=== PATIENT | male | born 1965 | race Caucasian/White ===

== ENCOUNTER 2017-12-27 02:21 | Observation (INO) | payer MEDICAID ==
[~2017-12-27] VITALS: Ht 177.8 cm; Wt 70.2 kg
[2017-12-27 02:59] LABS: BASOPHILS # (AUTO) 0.03 x10^3/uL (0-0.1); BASOPHILS % (AUTO) 0 % (0-1); EOSINOPHILS # (AUTO) 0.22 x10^3/uL (0-0.4); EOSINOPHILS % (AUTO) 4 % (1-7); LYMPHOCYTES # (AUTO) 1.44 x10^3/uL (1-3.4); LYMPHOCYTES % (AUTO) 24 % (22-44); MD NO; MEAN CORPUSCULAR HEMOGLOBIN 30.8 pg (27.5-34.5); MEAN CORPUSCULAR HGB CONC 34.1 g/dL (33.2-36.2); MEAN CORPUSCULAR VOLUME 90.3 fL (81-97); MEAN PLATELET VOLUME 8.7 fL (7.4-10.4); MONOCYTES # (AUTO) 0.67 x10^3/uL (0.2-0.8); MONOCYTES % (AUTO) 11 % (2-9); NEUTROPHILS # (AUTO) 3.61 x10^3/uL (1.8-6.8); NEUTROPHILS % (AUTO) 61 % (42-75); PLATELET COUNT 142 x10^3/uL (130-400); RED BLOOD COUNT 4.21 x10^6/uL (4.38-5.82); RED CELL DISTRIBUTION WIDTH 12.8 % (9.4-14.8)
[2017-12-27 03:10] LABS: ALANINE AMINOTRANSFERASE 43 U/L (12-78); ALBUMIN 3.7 g/dL (3.4-5.0); ANION GAP 3 mmol/L (5-15); CALCIUM 8.5 mg/dL (8.5-10.1); CHLORIDE 109 mmol/L (98-107); CREATININE 0.97 mg/dL (0.7-1.3); SALICYLATE LEVEL 2.7 mg/dL (2.8-20.0)
[2017-12-27 03:12] LABS: ALKALINE PHOSPHATASE 76 U/L (45-117); BILIRUBIN,TOTAL 0.4 mg/dL (0.2-1.0); TOTAL PROTEIN 7.2 g/dL (6.4-8.2)
[2017-12-27 03:13] LABS: ACETAMINOPHEN < 2 mcg/mL (10-30)
[2017-12-27 03:23] LABS: AMPHETAMINE SCREEN, URINE Negative (Negative); BARBITURATE SCREEN, URINE Negative (Negative); BENZODIAZEPINE SCREEN, URINE Negative (Negative); CANNABINOID SCREEN, URINE Positive (Negative); COCAINE SCREEN, URINE Negative (Negative); METHADONE SCREEN, URINE Negative (Negative); OPIATE SCREEN, URINE Negative (Negative)
[2017-12-27] MEDS ORDERED: ONDANSETRON ODT 4 MG PO PRN (12:00)
[2017-12-27 12:10] LABS: FREE T4 (FREE THYROXINE) 0.96 ng/dL (0.76-1.46); THYROID STIMULATING HORMONE 2.19 mIU/L (0.358-3.740)
[2017-12-27 12:31] VITALS: BP 117/83
[2017-12-27] MEDS: LORazepam 1MG TABLET PO PRN ×2 (13:20→19:47)
[2017-12-27] MEDS ORDERED: BUPR300T49 PO (14:20)
[2017-12-27] MEDS ORDERED: HALO5TAB5 PO (14:21)
[2017-12-27 19:56] VITALS: BP 105/71
[2017-12-28 05:40] LABS: BASOPHILS # (AUTO) 0.02 x10^3/uL (0-0.1); BASOPHILS % (AUTO) 0 % (0-1); EOSINOPHILS # (AUTO) 0.19 x10^3/uL (0-0.4); EOSINOPHILS % (AUTO) 4 % (1-7); LYMPHOCYTES # (AUTO) 1.44 x10^3/uL (1-3.4); LYMPHOCYTES % (AUTO) 29 % (22-44); MD NO; MEAN CORPUSCULAR HEMOGLOBIN 30.7 pg (27.5-34.5); MEAN CORPUSCULAR HGB CONC 33.7 g/dL (33.2-36.2); MEAN CORPUSCULAR VOLUME 91.1 fL (81-97); MEAN PLATELET VOLUME 8.7 fL (7.4-10.4); MONOCYTES # (AUTO) 0.49 x10^3/uL (0.2-0.8); MONOCYTES % (AUTO) 10 % (2-9); NEUTROPHILS # (AUTO) 2.82 x10^3/uL (1.8-6.8); NEUTROPHILS % (AUTO) 57 % (42-75); PLATELET COUNT 128 x10^3/uL (130-400); RED BLOOD COUNT 4.11 x10^6/uL (4.38-5.82); RED CELL DISTRIBUTION WIDTH 13.2 % (9.4-14.8)
[2017-12-28 05:48] LABS: CHLORIDE 110 mmol/L (98-107)
[2017-12-28 05:55] LABS: ALANINE AMINOTRANSFERASE 36 U/L (12-78); ALBUMIN 3.3 g/dL (3.4-5.0); ALKALINE PHOSPHATASE 71 U/L (45-117); ANION GAP 6 mmol/L (5-15); BILIRUBIN,TOTAL 0.3 mg/dL (0.2-1.0); CALCIUM 8.1 mg/dL (8.5-10.1); CREATININE 0.83 mg/dL (0.7-1.3); TOTAL PROTEIN 6.3 g/dL (6.4-8.2)
[2017-12-28 08:17] VITALS: BP 104/74
[2017-12-28] MEDS: OLANZAPINE 5 MG TABLET PO PRN (11:09)
[2017-12-28 20:06] VITALS: BP 106/67
[2017-12-28] MEDS: LORazepam 1MG TABLET PO PRN (20:51)
[2017-12-29 08:42] VITALS: BP 128/81
[2017-12-29] MEDS: LORazepam 1MG TABLET PO PRN ×2 (08:51→22:22)
[2017-12-29] MEDS ORDERED: IBUPROFEN 200 MG TABLET PO PRN (17:30)
[2017-12-29 19:32] VITALS: BP 99/64
[2017-12-29] MEDS: OLANZAPINE 5 MG TABLET PO PRN (22:22)
[2017-12-30 08:01] VITALS: BP 96/62
[2017-12-30] MEDS: LORazepam 1MG TABLET PO PRN (19:17)
[2017-12-30] MEDS: OLANZAPINE 5 MG TABLET PO PRN (19:17)
[2017-12-30 19:33] VITALS: BP 127/83
[2017-12-31 08:24] VITALS: BP 113/78
[2017-12-31] MEDS: LORazepam 1MG TABLET PO PRN ×2 (16:16→21:22)
[2017-12-31] MEDS: OLANZAPINE 5 MG TABLET PO PRN (16:16)
[2017-12-31 19:34] VITALS: BP 104/68
[2017-12-31] MEDS: ACETAMINOPHEN 325 MG TABLET PO PRN (21:22)
[2018-01-01] MEDS: ACETAMINOPHEN 325 MG TABLET PO PRN (09:24)
[2018-01-01 20:07] VITALS: BP 95/55
[2018-01-02 07:41] VITALS: BP 105/67
[2018-01-02] MEDS: ACETAMINOPHEN 325 MG TABLET PO PRN (17:08)
[2018-01-02] MEDS: OLANZAPINE 5 MG TABLET PO PRN (17:08)
[2018-01-03 08:40] VITALS: BP 93/53
[2018-01-03] MEDS: ACETAMINOPHEN 325 MG TABLET PO PRN (19:32)
[2018-01-03 19:36] VITALS: BP 93/55
[2018-01-04 08:22] VITALS: BP 104/68
[2018-01-04 20:04] VITALS: BP 102/65
[2018-01-04] MEDS: LORazepam 1MG TABLET PO PRN (20:25)
[2018-01-04] MEDS: OLANZAPINE 5 MG TABLET PO PRN (20:26)
== END 2018-01-05 13:37 ==
LOC: ED 03:08 → EDIP 10:23 → UNDOADMOB 10:23 → 2N 12:19 → EDIP 12:19
PROVIDERS: ADMIT Internal Medicine; ATTEND Internal Medicine
DX: F23 Brief psychotic disorder (principal); F22 Delusional disorders; F25.9 Schizoaffective disorder, unspecified; F31.9 Bipolar disorder, unspecified; D64.9 Anemia, unspecified; Z91.14 Patient's other noncompliance with medication regimen; D69.6 Thrombocytopenia, unspecified
CPT/HCPCS: 36415; 71045; 73010; 80053; 80307; 80329; 84439; 84443; 85025; 99285; G0378; G0480